=== PATIENT | male | born 1970 | race Hispanic/Latino ===

== ENCOUNTER → 2019-05-21 | Outpatient (CLI) | payer OTHER ==
[~2019-05-21] VITALS: Ht 177.8 cm; Wt 111.6 kg
[~2019-05-21] MED LIST: REGADENOSON 0.4 MG/5 ML PF SYG IVP SCH
== END | disposition home or self-care (01) ==
LOC: SHCH 08:18
PROVIDERS: ATTEND Internal Medicine Cardiovascular Disease
DX: R07.9 Chest pain, unspecified (principal)
CPT/HCPCS: 78452; 93017; 96374; A9500 ×2; J2785

== ENCOUNTER 2020-11-17 06:07 | Day surgery (SDC) | payer OTHER ==
[~2020-11-17] VITALS: Ht 182.9 cm; Wt 117.9 kg
[~2020-11-17 06:07] MED LIST changes: +ATOR40TA71 PO; +MELO7.5T12 PO; +NICO-704 TD; +POLY119P3 PO; -REGADENOSON 0.4 MG/5 ML PF SYG IVP SCH; +TAMS-1 PO; +[UNRECOGNIZED DRUG - CODE] TP
[2020-11-17] MEDS ORDERED: 0.9%NACL 1000ML 1,000 ML IV ONE (06:13)
[2020-11-17 06:56] VITALS: BP 118/74
[2020-11-17] MEDS ORDERED: PROPOFOL 10 MG/ML 20ML VIAL IV ONE (08:01)
[2020-11-17 08:15] VITALS: BP 96/65
[2020-11-17 08:25] VITALS: BP 108/75
[2020-11-17 08:35] VITALS: BP 117/78
[2020-11-17 08:45] VITALS: BP 116/73
[2020-11-17 09:15] VITALS: BP 96/65
== END 2020-11-17 08:50 | disposition home or self-care (01) ==
LOC: ENDO 06:07 → DAH 06:07 → ENDO 08:50
PROVIDERS: ATTEND Internal Medicine Gastroenterology
DX: Z12.11 Encounter for screening for malignant neoplasm of colon (principal); Z20.822 Contact with and (suspected) exposure to COVID-19; K59.04 Chronic idiopathic constipation; K62.89 Other specified diseases of anus and rectum; E11.22 Type 2 diabetes mellitus with diabetic chronic kidney disease; N18.9 Chronic kidney disease, unspecified; F32.9 Major depressive disorder, single episode, unspecified; J44.9 Chronic obstructive pulmonary disease, unspecified; G47.11 Idiopathic hypersomnia with long sleep time; E78.5 Hyperlipidemia, unspecified; Z72.89 Other problems related to lifestyle; Z79.899 Other long term (current) drug therapy
CPT/HCPCS: 82948; 87635; A4215 ×2; A4221; A4222; A4223; A4606; A4620; A4657; A4663; C9803; G0121; J2704; J7030; 45378; G0105